=== PATIENT | female | born 1975 | race Caucasian/White ===

== ENCOUNTER 2016-06-24 19:57 | Emergency (ER) | payer SELFPAY ==
[~2016-06-24] VITALS: Ht 170.2 cm; Wt 93.2 kg
[~2016-06-24 19:57] MED LIST: ASPI325T PO; BABY81CH PO; MULTCAP PO; [UNRECOGNIZED DRUG - OTHER] PO
[2016-06-24 20:00] VITALS: BP 142/80; PULSE 72; RESP 18; TEMP 97.7; O2SAT 99
== END 2016-06-25 00:16 | disposition left against medical advice (07) ==
LOC: NED 19:57
DX: R11.2 Nausea with vomiting, unspecified (principal); Z53.21 Procedure and treatment not carried out due to patient leaving prior to being seen by health care provider
CPT/HCPCS: 99281